=== PATIENT | male | born 1955 | race American Indian/Alaskan Native ===

== ENCOUNTER 2016-07-19 10:39 | Outpatient (CLI) | payer OTHER ==
--- NOTE | 2016-07-19 13:45 | Ultrasound Report ---
ABDOMINAL ULTRASOUND: 07/19/16 10:39:00 CLINICAL: History of renal cyst. FINDINGS: High-resolution ultrasound demonstrated a normal size liver with marked diffuse increased echogenicity. A benign left hepatic cyst measures 1.3 x 1.2 x 0.5 cm. No liver nodularity or mass. Normal hepatic vasculature and inferior vena cava. Normal gallbladder and bile ducts. The bladder wall measures 2 mm in thickness. The common bile duct measures 4.1 mm diameter. The pancreas was not well imaged due to bowel gas . Normal abdominal aorta measuring 2.3 cm. A normal spleen measured 8.9cm. Normal renal echogenicity and normal non-dilated renal collecting systems and ureters. The right kidney measured 9.8 x 4.2 x 4.6cm. The left kidney measured 10.1 x 5.3 x 5.3cm. A left lower pole cyst measures 2.7 x 2.5 x 3.1 cm. No solid mass. No ascites. IMPRESSION: 1. Increased liver echogenicity consistent with hepatic steatosis. 2. A benign 1.3 cm left hepatic cyst. 3. A benign 3.1 cm left lower pole renal cyst.
== END 2016-07-19 10:40 | disposition home or self-care (01) ==
LOC: US 10:39
PROVIDERS: ATTEND Internal Medicine Nephrology
DX: N28.1 Cyst of kidney, acquired (principal); K76.0 Fatty (change of) liver, not elsewhere classified; K76.89 Other specified diseases of liver
CPT/HCPCS: 76700; 76857

== ENCOUNTER 2017-06-06 13:35 | Outpatient (CLI) | payer OTHER ==
--- NOTE | 2017-06-06 16:23 | Ultrasound Report ---
ABDOMINAL ULTRASOUND: 06/06/17 13:35:00 CLINICAL: Right flank pain. FINDINGS: High-resolution ultrasound demonstrates an enlarged liver with marked diffuse increased echogenicity. A benign left hepatic cyst measures 1 cm. No liver mass identified. Normal gallbladder and bile ducts. The gallbladder wall measures 2.0mm. The common bile duct measures 3.0 mm diameter. The pancreas is not well imaged due to bowel gas and body habitus. Normal abdominal aorta. A normal spleen measures 8.3 x 3.7 x 4.2cm. Normal bilateral renal echogenicity and normal non-dilated renal collecting systems and ureters. The right kidney measures 9.3 x 5.6 x 5.1cm. The left kidney measures 10.2 x 5.9 x 4.4cm. The previously described left lower pole renal cyst measures 2.6 x 2.6 x 2.1 cm compared to 2.7 x 2.5 x 3.1 cm on the last exam. An echogenic focus has developed in the wall of the cyst. No ascites or mass. IMPRESSION: 1. Hepatic steatosis and hepatomegaly. 2. No cholelithiasis. 3. A benign 1 cm left hepatic cyst. 4. Left lower pole renal cyst with a new calcification. Recommend either a CT or MRI without and with contrast for further evaluation of this cyst in order to exclude cystic neoplasm.
== END 2017-06-06 13:36 | disposition home or self-care (01) ==
LOC: SPVWC 13:35
PROVIDERS: ATTEND Family Medicine
DX: N28.1 Cyst of kidney, acquired (principal); K76.0 Fatty (change of) liver, not elsewhere classified; R16.0 Hepatomegaly, not elsewhere classified; K76.89 Other specified diseases of liver; N28.89 Other specified disorders of kidney and ureter
CPT/HCPCS: 76700